=== PATIENT | female | born 1990 | race Caucasian/White ===

== ENCOUNTER 2018-08-20 10:42 | Inpatient (IN) | payer MEDICAID ==
[2018-08-20] MEDS ORDERED: METHYLERGONOVINE 0.2 MG INJ IM ×2 (12:00→20:30)
[2018-08-20] MEDS ORDERED: CARBOPROST 250 MCG INJ IM ×2 (12:00→20:30)
[2018-08-20] MEDS ORDERED: MISOPROSTOL 200 MCG TAB PR ×2 (12:00→20:30)
[2018-08-20] MEDS ORDERED: OXYTOCIN 30 UNITS/LR 500 ML IV ×2 (12:00→20:30)
[2018-08-20 12:09] LABS: ADD MAN DIFF? NO
[2018-08-20] MEDS: LACTATED RINGER'S 1,000 ML IV ×2 (12:12→13:42)
[2018-08-20 12:13] LABS: BASOPHILS % 0.3 % (0.0-2.0); EOSINOPHILS % 0.3 % (0.0-7.0); HEMOGLOBIN 13.2 g/dl (12.0-16.0); LYMPHOCYTES # 1.4 10^3/ul (0.8-2.9); LYMPHOCYTES % 17.6 % (15.0-51.0); MEAN CORPUSCULAR HEMOGLOBIN 30.5 pg (29.0-33.0); MEAN CORPUSCULAR HGB CONC 33.8 g/dl (32.0-37.0); MEAN CORPUSCULAR VOLUME 90.1 fl (82.0-101.0); MEAN PLATELET VOLUME 9.4 fl (7.4-10.4); MONOCYTE # 0.5 10^3/ul (0.3-0.9); MONOCYTES % 5.7 % (0.0-11.0); NEUTROPHIL # 5.9 10^3/ul (1.6-7.5); NEUTROPHILS % 75.6 % (39.0-77.0); PLATELET COUNT 289 10^3/UL (140-415); RED BLOOD COUNT 4.33 10^6/ul (4.20-5.40); RED CELL DISTRIBUTION WIDTH 12.6 % (11.5-14.5)
[2018-08-20 12:13] LABS: WHITE BLOOD COUNT 7.9 10^3/ul (4.8-10.8)
[2018-08-20 12:36] LABS: INR 0.84; PROTIME 11.6 Sec (11.9-14.9); PT RATIO 0.9
[2018-08-20 12:37] LABS: PARTIAL THROMBOPLASTIN TIME 30.9 Sec (23.0-35.0)
[2018-08-20 13:02] LABS: HEPATITIS B SURFACE ANTIGEN NEGATIVE (NEGATIVE)
[2018-08-20] MEDS: CITRIC ACID/NA CITRATE 30 ML CUP PO (13:41)
[2018-08-20] MEDS ORDERED: OXYTOCIN 30 UNITS/LR 1,000 ML IV (13:59)
[2018-08-20] MEDS ORDERED: morphine SULFATE/PF (10 MG/10 ML) INJ (13:59)
[2018-08-20] MEDS ORDERED: METOCLOPRAMIDE 10 MG INJ (13:59)
[2018-08-20] MEDS ORDERED: ONDANSETRON 4 MG INJ (13:59)
[2018-08-20] MEDS ORDERED: KETOROLAC 30 MG INJ (14:00)
[2018-08-20] MEDS ORDERED: PHENYLephrine (100 MCG/ML) 10ML SYG (14:38)
[2018-08-20 15:41] LABS: RAPID PLASMA REAGIN NONREACTIVE (NR)
[2018-08-20] MEDS: OXYTOCIN 30 UNITS/LR 500 ML IV ×2 (15:43→20:57)
[2018-08-20] MEDS: CEFAZOLIN 2 GM/50 ML (PMX) 50 ML IVPB (15:44)
[2018-08-20] MEDS ORDERED: NALOXONE (0.4 MG/ML) INJ IV ×2 (16:30→19:30)
[2018-08-20] MEDS ORDERED: DIPHENHYDRAMINE 50 MG INJ IV ×2 (16:30)
[2018-08-20] MEDS ORDERED: morphine 2 MG INJ IV ×6 (16:30→19:30)
[2018-08-20] MEDS ORDERED: morphine (1 MG/ML) 10ML SYRINGE IV ×3 (16:30)
[2018-08-20] MEDS ORDERED: KETOROLAC 30 MG INJ IV ×2 (16:30→19:30)
[2018-08-20] MEDS ORDERED: ONDANSETRON 4 MG INJ IV ×2 (16:30→19:30)
[2018-08-20] MEDS: DEXTROSE 5%-LR 1,000 ML IV (20:19)
[2018-08-20] MEDS ORDERED: METHYLERGONOVINE 0.2 MG TAB PO (20:30)
[2018-08-20] MEDS: ONDANSETRON 4 MG INJ IV (20:32)
[2018-08-20] MEDS: SENNA/DOCUSATE NA (8.6MG/50MG) TAB PO (20:57)
[2018-08-21] MEDS: DEXTROSE 5%-LR 1,000 ML IV ×3 (01:53→20:19)
[2018-08-21] MEDS: DIPHENHYDRAMINE 50 MG INJ IV (03:03)
[2018-08-21 08:28] LABS: ADD MAN DIFF? NO
[2018-08-21 08:38] LABS: WHITE BLOOD COUNT 9.1 10^3/ul (4.8-10.8)
[2018-08-21 08:38] LABS: BASOPHILS % 0.2 % (0.0-2.0); EOSINOPHILS % 0.3 % (0.0-7.0); HEMATOCRIT 30.7 % (37.0-47.0); HEMOGLOBIN 10.3 g/dl (12.0-16.0); LYMPHOCYTES # 1.4 10^3/ul (0.8-2.9); LYMPHOCYTES % 15.5 % (15.0-51.0); MEAN CORPUSCULAR HGB CONC 33.6 g/dl (32.0-37.0); MEAN CORPUSCULAR VOLUME 89.5 fl (82.0-101.0); MEAN PLATELET VOLUME 9.6 fl (7.4-10.4); MONOCYTE # 0.6 10^3/ul (0.3-0.9); MONOCYTES % 6.2 % (0.0-11.0); NEUTROPHILS % 77.2 % (39.0-77.0); PLATELET COUNT 228 10^3/UL (140-415); RED BLOOD COUNT 3.43 10^6/ul (4.20-5.40); RED CELL DISTRIBUTION WIDTH 12.7 % (11.5-14.5)
[2018-08-21] MEDS: SENNA/DOCUSATE NA (8.6MG/50MG) TAB PO ×2 (09:44→21:44)
[2018-08-21] MEDS: KETOROLAC 30 MG INJ IV (11:25)
[2018-08-21] MEDS: HYDROCODONE/APAP (5/325) TAB PO ×2 (16:19→23:43)
[2018-08-21] MEDS: IBUPROFEN 800 MG TAB PO (21:44)
[2018-08-22] MEDS: LANOLIN HPA 1 PKT TOP (01:06)
[2018-08-22] MEDS: DEXTROSE 5%-LR 1,000 ML IV ×2 (04:19→12:19)
[2018-08-22] MEDS: IBUPROFEN 800 MG TAB PO ×2 (05:54→14:15)
[2018-08-22] MEDS: HYDROCODONE/APAP (5/325) TAB PO ×3 (06:00→22:00)
[2018-08-22] MEDS: SENNA/DOCUSATE NA (8.6MG/50MG) TAB PO (09:00)
[2018-08-23] MEDS: IBUPROFEN 800 MG TAB PO ×2 (00:14→06:00)
[2018-08-23] MEDS: SENNA/DOCUSATE NA (8.6MG/50MG) TAB PO ×2 (00:14→09:00)
[2018-08-23] MEDS: HYDROCODONE/APAP (5/325) TAB PO ×2 (04:26→06:00)
[2018-08-23] MEDS ORDERED: DIPHTH/TET/ACEL PERTUSS (ADULT) 0.5 ML VIAL IM* (09:00)
[2018-08-23] MEDS: MEASLES,MUMPS,RUBELLA VACCINE INJ SC* (09:00)
[2018-08-23] MEDS: DIPHTH/TET/ACEL PERTUSS (ADULT) 0.5 ML VIAL IM* ×2 (11:14→11:33)
[2018-08-23] MEDS: LANOLIN HPA 1 PKT TOP (12:48)
== END 2018-08-23 14:15 | disposition home or self-care (01) | DRG 788 ==
LOC: L-D 10:42 → PP1 18:15
PROVIDERS: Obstetrics & Gynecology
PROC: 10D00Z1 Extraction of Products of Conception, Low, Open Approach (ICD-10-PCS; principal; 2018-08-20 12:30)
DX: O32.1XX0 Maternal care for breech presentation, not applicable or unspecified (principal); G89.18 Other acute postprocedural pain; O90.81 Anemia of the puerperium; D64.9 Anemia, unspecified; Z3A.39 39 weeks gestation of pregnancy; Z37.0 Single live birth; Z23 Encounter for immunization
CPT/HCPCS: 76815; 85025; 85610; 85730; 86592; 86850; 86900; 86901; 87340